=== PATIENT | female | born 1945 | race Caucasian/White ===

== ENCOUNTER → 2018-03-22 | Outpatient (CLI) | payer MEDICARE, OTHER ==
[~2018-03-22] MED LIST: HYDACE5; HYDACE5 PO; NAPR220 PO
[2018-03-22 17:23] LABS: Bilirubin, Urine Neg (Neg); Blood, Urine Neg (Neg); Glucose Qualitative, Urine Neg (Neg); Ketones, Urine Neg (Neg); Leukocyte Esterase, Urine Neg (Neg); Nitrite, Urine Neg (Neg); Protein, Urine Neg (Neg); Specific Gravity, Urine 1.005 (1.003-1.022); Urobilinogen, Urine NORM (Normal)
[2018-03-22 17:33] LABS: Appearance, Urine Clear (Clear); Color, Urine Yellow (P-Yellow)
== END | disposition home or self-care (01) ==
LOC: LAB SHORT 13:49 → LAB SRC 13:49
PROVIDERS: Registered Nurse
DX: Z13.1 Encounter for screening for diabetes mellitus (principal); Z13.6 Encounter for screening for cardiovascular disorders; E78.5 Hyperlipidemia, unspecified
CPT/HCPCS: 81003

== ENCOUNTER → 2018-09-24 | Outpatient (CLI) | payer MEDICARE, OTHER ==
[2018-09-24 13:18] LABS: BASOPHILS ABSOLUTE AUTO 0.08 K/mm3 (0.00-0.23); BASOPHILS PERCENT AUTO 1 % (0-2); EOSINOPHILS ABSOLUTE AUTO 2.41 K/mm3 (0.00-0.68); EOSINOPHILS PERCENT AUTO 20 % (0-6); Hemoglobin 14.6 g/dL (11.5-16.0); IMMATURE GRAN ABSOLUTE AUTO 0.12 K/mm3 (0.00-0.10); IMMATURE GRAN PERCENT AUTO 1 % (0-1); LYMPHOCYTES ABSOLUTE AUTO 2.98 K/mm3 (0.84-5.20); LYMPHOCYTES PERCENT AUTO 24 % (21-46); MONOCYTES ABSOLUTE AUTO 1.01 K/mm3 (0.16-1.47); MONOCYTES PERCENT AUTO 8 % (4-13); Mean Corpuscular HGB 29.4 pg (26.0-34.0); Mean Corpuscular HGB Conc 33.2 g/dL (31.5-36.5); Mean Corpuscular Volume 89 fL (80-100); Mean Platelet Volume 9.3 fL (9.1-12.4); NEUTROPHILS ABSOLUTE AUTO 5.75 K/mm3 (1.96-9.15); NEUTROPHILS PERCENT AUTO 47 % (41-73); Platelet Count 322 K/mm3 (150-400); RDW Coefficient Variation 13.3 % (11.7-14.2); RDW Standard Deviation 43.1 fL (35.1-46.3); Red Blood Cell Count 4.97 M/mm3 (3.80-5.20); White Blood Cell Count 12.35 K/mm3 (4.00-11.30)
[2018-09-24 13:29] LABS: Alanine Aminotransfer (ALT/SGP 25 U/L (12-78); Albumin, Blood 3.8 g/dL (3.4-5.0); Albumin/Globulin Ratio 1.1 (0.8-1.8); Alk Phos 85 U/L (40-126); Anion Gap 9 mmol/L (6-16); Aspartate Aminotrans (AST/SGOT 18 U/L (12-37); Bilirubin, Total 0.3 mg/dL (0.1-1.0); Blood Urea Nitrogen 22 mg/dL (8-24); Bun/Creatinine Ratio 27.5 (12.0-20.0); CO2, Blood 27 mmol/L (21-32); Calcium, Blood 8.8 mg/dL (8.5-10.1); Chloride, Blood 99 mmol/L (98-108); Globulin, Blood 3.6 g/dL (2.2-4.0); Glomerular Filtration Rate >60 (60-); Glucose, Blood 137 mg/dL (70-99); Potassium, Blood 4.3 mmol/L (3.5-5.5); Sodium, Blood 135 mmol/L (136-145); Total Protein, Blood 7.4 g/dL (6.4-8.2)
== END | disposition home or self-care (01) ==
LOC: LAB EV 13:13 → LAB SHORT 13:13
PROVIDERS: Physician Assistant Medical
DX: N39.0 Urinary tract infection, site not specified (principal); R10.11 Right upper quadrant pain
CPT/HCPCS: 80053; 85025

== ENCOUNTER 2018-10-22 07:44 | Day surgery (SDC) | payer MEDICARE, OTHER ==
[~2018-10-22] VITALS: Ht 165.1 cm; Wt 83.4 kg
[2018-10-22] MEDS ORDERED: FISH OIL + D31 EACH (08:22)
[2018-10-22] MEDS ORDERED: MAGOXI400 (08:22)
[2018-10-22] MEDS ORDERED: ERGO400 (08:22)
== END 2018-10-22 09:50 | disposition home or self-care (01) ==
LOC: ORSCSDS 07:44
PROVIDERS: Surgery
PROC: 0DBL8ZX Excision of Transverse Colon, Via Natural or Artificial Opening Endoscopic, Diagnostic (ICD-10-PCS; principal; 2018-10-22 09:00)
DX: Z12.11 Encounter for screening for malignant neoplasm of colon (principal); D12.3 Benign neoplasm of transverse colon; K64.8 Other hemorrhoids; K63.89 Other specified diseases of intestine; Z87.891 Personal history of nicotine dependence
CPT/HCPCS: 88305; J2704; J7120

== ENCOUNTER 2021-01-22 06:30 | Emergency (ER) | payer MEDICARE, OTHER ==
[~2021-01-22] VITALS: Ht 167.6 cm; Wt 86.2 kg
[~2021-01-22 06:30] MED LIST changes: +ERGO400; +FISH OIL + D31 EACH; +MAGOXI400
[2021-01-22 07:24] LABS: Source, Urine Clean Catch
[2021-01-22 07:28] LABS: Appearance, Urine Clear (Clear); Bilirubin, Urine Neg (Neg); Blood, Urine 3+ (Neg); Color, Urine Yellow (P-Yellow); Glucose Qualitative, Urine Neg (Neg); Ketones, Urine Neg (Neg); Leukocyte Esterase, Urine Neg (Neg); Nitrite, Urine Neg (Neg); Protein, Urine Neg (Neg); Specific Gravity, Urine 1.015 (1.003-1.022); Urobilinogen, Urine NORM (Normal); pH, Urine 6.5 (5.0-8.0)
[2021-01-22 07:39] LABS: Squamous Epithelial Cells Few /hpf (Few)
[2021-01-22 07:40] LABS: Bacteria Not Seen /hpf; Transitional Epithelial Cells Rare /hpf (0-Rare)
[2021-01-22] MEDS ORDERED: CYCL10 PO (07:40)
[2021-01-22] MEDS ORDERED: TIZA4 PO (08:03)
== END 2021-01-22 09:03 | disposition home or self-care (01) ==
LOC: ER 06:30
PROVIDERS: Emergency Medicine
DX: M54.16 Radiculopathy, lumbar region (principal); Z87.891 Personal history of nicotine dependence; Z88.2 Allergy status to sulfonamides; Z88.8 Allergy status to other drugs, medicaments and biological substances
CPT/HCPCS: 73502; 81001; 87086; 96372; 99283-25; J3010

== ENCOUNTER → 2022-02-28 | Outpatient (CLI) | payer MEDICARE, OTHER ==
[~2022-02-28] MED LIST changes: +CYCL10 PO; +TIZA4 PO
== END | disposition home or self-care (01) ==
LOC: LAB SHORT 12:10 → LAB 12:10
DX: Z20.818 Contact with and (suspected) exposure to other bacterial communicable diseases (principal)
CPT/HCPCS: 87070

== ENCOUNTER 2024-03-04 06:25 | Day surgery (SDC) | payer MEDICARE, OTHER ==
[~2024-03-04] VITALS: Ht 167.6 cm; Wt 90.0 kg
[~2024-03-04 06:25] MED LIST changes: +Lactated Ringer's 1,000 ML IV ONE; +Lidocaine 1%-Epineph 1:100000 20 ML MDV ONE; +Sodium Bicarb 8.4% 1 MEQ/ML 50 ML Vial ONE
[2024-03-04] MEDS ORDERED: LISI5 PO (06:48)
[2024-03-04] MEDS ORDERED: HYDROCODONE-AC1 EAC7 PO (06:48)
[2024-03-04] MEDS ORDERED: ZOLOFT50 MG PO (06:49)
[2024-03-04] MEDS ORDERED: Lactated Ringer's 1,000 ML IV ONE (06:56)
[2024-03-04] MEDS ORDERED: propofoL 20 ML IV ONE (07:19)
[2024-03-04] MEDS ORDERED: Midazolam HCl 1MG / ML 2ML Vial ONE (07:19)
--- NOTE | 2024-03-04 07:21 | NUR ---
03/04/24 0721 Elizabeth Torres 0714 TIME OUT TO VERIFY CORRECT PT, SITE, PROCEDURE, ALLERGIES. PT ELECTED TO PROCEED WITH BLOCK. 9CC LIDOCAINE 1% WITH EPI; [id number] WITH 1CC OF BICARB 8.4%
[2024-03-04 07:50] VITALS: BP 130/73
== END 2024-03-04 08:39 | disposition home or self-care (01) ==
LOC: ORSCSDS 06:25
PROVIDERS: Orthopaedic Surgery
PROC: 01N54ZZ Release Median Nerve, Percutaneous Endoscopic Approach (ICD-10-PCS; principal; 2024-03-04 07:30)
DX: G56.03 Carpal tunnel syndrome, bilateral upper limbs (principal); I10 Essential (primary) hypertension; Z87.891 Personal history of nicotine dependence; Z79.899 Other long term (current) drug therapy
CPT/HCPCS: J2250; J2704; J7120

== ENCOUNTER 2024-04-15 08:38 | Day surgery (SDC) | payer MEDICARE, OTHER ==
[~2024-04-15] VITALS: Ht 167.6 cm; Wt 82.6 kg
[~2024-04-15 08:38] MED LIST changes: +HYDROCODONE-AC1 EAC7 PO; +LISI5 PO; -Lidocaine 1%-Epineph 1:100000 20 ML MDV ONE; -Sodium Bicarb 8.4% 1 MEQ/ML 50 ML Vial ONE; +ZOLOFT50 MG PO
[2024-04-15] MEDS ORDERED: LOSARTAN POTASS25 M2 PO (09:15)
--- NOTE | 2024-04-15 09:22 | NUR ---
04/15/24 0922 Chanell Cid [id number]: TIMEOUT FOR PRE-OP INJECTION 0920: PRE-OP INJECTION OF 10 CC OF MIX OF 9 CC LIDOCAINE 1% WITH EPINEPHRINE 1:100,000 AND 1 CC OF SODIUM BICARBONATE
[2024-04-15] MEDS ORDERED: Lactated Ringer's 1,000 ML IV ONE (09:34)
[2024-04-15] MEDS ORDERED: Midazolam HCl 1MG / ML 2ML Vial ONE (09:42)
[2024-04-15 10:22] VITALS: BP 124/61
== END 2024-04-15 10:45 | disposition home or self-care (01) ==
LOC: ORSCSDS 08:38
PROVIDERS: Orthopaedic Surgery
PROC: 01N54ZZ Release Median Nerve, Percutaneous Endoscopic Approach (ICD-10-PCS; principal; 2024-04-15 10:00)
DX: G56.02 Carpal tunnel syndrome, left upper limb (principal); I10 Essential (primary) hypertension; Z87.891 Personal history of nicotine dependence; Z79.899 Other long term (current) drug therapy
CPT/HCPCS: J2250; J7120

== ENCOUNTER 2024-06-03 12:51 | Emergency (ER) | payer MEDICARE, OTHER ==
[~2024-06-03] VITALS: Ht 167.6 cm; Wt 79.4 kg
[~2024-06-03 12:51] MED LIST changes: +LOSARTAN POTASS25 M2 PO; -Lactated Ringer's 1,000 ML IV ONE
[2024-06-03 13:19] VITALS: BP 102/72
== END 2024-06-03 18:04 | disposition home or self-care (01) ==
LOC: ER 12:51
DX: M25.551 Pain in right hip (principal); Z88.2 Allergy status to sulfonamides; Z88.8 Allergy status to other drugs, medicaments and biological substances; Z87.891 Personal history of nicotine dependence; Z96.641 Presence of right artificial hip joint
CPT/HCPCS: 72192; 73502; 99283-25

== ENCOUNTER 2025-03-13 07:12 | Day surgery (SDC) | payer MEDICARE, OTHER ==
[~2025-03-13] VITALS: Ht 160 cm; Wt 85.6 kg
[2025-03-13] VITALS (17 sets, daily range): BP systolic 96–148; BP diastolic 60–114
[~2025-03-13 07:12] MED LIST changes: +Aspir 8181 MG PO; +ROSUVASTATIN CAL5 MG PO
--- NOTE | 2025-03-13 07:55 | NUR ---
History, Chart, Medications and Allergies reviewed before start of procedure. Patient confirms NPO status and agrees with scheduled surgery. Pre-Op teaching done. Pt verbalizes understanding. Lungs clear T/O to Auscultation. Patient states colon prep results BROWN.
--- NOTE | 2025-03-13 08:48 | NUR ---
03/13/25 0848 Felton Jovel CONFIRMED AND REVIEWED H&P, MEDCICATIONS, ALLERGIES, MEDICAL HISTORY, RESPIRATORY HISTORY, VITAL SIGNS, 3-LEAD EKG, CONSENTS, AND PHYSICIAN ORDERS. PATIENT CONFIRMS NPO STATUS AND AGREES WITH SCHEDULED PROCEDURE. MONITOR INTACT WITH CONTINUOUS PULSE OXIMETRY, CAPNOGRAPHY, 3-LEAD EKG, INTERMITTENT BP. SUPPLEMENTAL O2 TO BE TITRATED THROUGHOUT PROCEDURE TO MAINTAIN O2 SATURATION ABOVE 90%. PATIENT DETERMINED TO BE ASA APPROPRIATE FOR PROPOFOL SEDATION PRIOR TO START OF PROCEDURE BY DR. SELF
--- NOTE | 2025-03-13 09:46 | NUR ---
Discharge instructions reviewed with patient. Patient verbalizes understanding. Copy given to patient to take home. Patient up to Ambulate independently. Gait steady.
== END 2025-03-13 09:48 | disposition home or self-care (01) ==
LOC: ORSCMMR 07:12 → ORSCSDS 08:30 → ORD 08:30 → ORSCMMR 08:30
PROVIDERS: Surgery
PROC: 0DJD8ZZ Inspection of Lower Intestinal Tract, Via Natural or Artificial Opening Endoscopic (ICD-10-PCS; principal; 2025-03-13 08:30)
DX: Z12.11 Encounter for screening for malignant neoplasm of colon (principal); Z86.0100 Personal history of colon polyps, unspecified; I10 Essential (primary) hypertension; F43.21 Adjustment disorder with depressed mood; Z79.82 Long term (current) use of aspirin; Z79.899 Other long term (current) drug therapy; Z87.891 Personal history of nicotine dependence
CPT/HCPCS: J2704; J7120